=== PATIENT | male | born 1945 | race Caucasian/White ===

== ENCOUNTER 2018-09-19 08:21 | Inpatient (IN) | payer MEDICARE, MEDICAID ==
[~2018-09-19] VITALS: Ht 162.6 cm; Wt 74.0 kg
[2018-09-19] VITALS (9 sets, daily range): BP systolic 130–149; BP diastolic 56–85
[2018-09-19] MEDS ORDERED: GLIP10TA10 PO (10:31)
[2018-09-19] MEDS ORDERED: ATOR20TA PO (10:31)
[2018-09-19] MEDS ORDERED: METF-416 PO (10:31)
[2018-09-19] MEDS ORDERED: AMOX1TAB15 PO (10:31)
[2018-09-19] MEDS ORDERED: OMEP20CA10 PO (10:31)
[2018-09-19] MEDS ORDERED: CLOP75TA33 PO (10:31)
[2018-09-19] MEDS ORDERED: AMLO10TA80 PO (10:31)
[2018-09-19] MEDS ORDERED: CARV3.1242 PO (10:31)
[2018-09-19] MEDS ORDERED: HYDR25TA PO (10:31)
[2018-09-19] MEDS ORDERED: INSU100I24 SQ (10:31)
[2018-09-19] MEDS ORDERED: IOHEXOL-300 100 ML BOTTLE ONE ×2 (10:50→11:16)
[2018-09-19] MEDS ORDERED: LIDOCAINE HCL 1% 20ML VIAL (Pyxis) INJ ONE (10:51)
[2018-09-19] MEDS ORDERED: MIDAZOLAM HCL 2 MG/2 ML VIAL ONE (10:58)
[2018-09-19] MEDS ORDERED: FENTANYL CITRATE/PF 50MCG/ML 2ML VIAL ONE (10:58)
[2018-09-19] MEDS ORDERED: FURO20TA4 PO (11:03)
[2018-09-19] MEDS ORDERED: LISI40TA4 PO (11:03)
[2018-09-19] MEDS ORDERED: CLOPIDOGREL 75MG TABLET ONE (11:53)
[2018-09-19] MEDS ORDERED: ASPIRIN 325MG TABLET ONE (11:53)
[2018-09-19] MEDS ORDERED: ONDANSETRON HCL 4MG/2ML INJ IV PRN (12:00)
[2018-09-19] MEDS ORDERED: ACETAMINOPHEN 325MG TABLET PO PRN (12:00)
[2018-09-19] MEDS ORDERED: ATROPINE SULFATE 1MG/10ML SYR IV PRN (12:00)
[2018-09-19] MEDS ORDERED: HEPARIN SODIUM 1,000 UNIT/1ML VIAL IV ONE (13:21)
[2018-09-20] VITALS (11 sets, daily range): BP systolic 134–151; BP diastolic 54–78
[2018-09-20 06:18] LABS: BASOPHILS % 0.5 % (0.0-2.0); EOSINOPHILS % 0.8 % (0.0-5.0); HEMATOCRIT. 35.7 % (42.0-52.0); HEMOGLOBIN. 12.3 g/dL (14.0-18.0); LYMPHOCYTES % 33.5 % (20.0-50.0); MEAN CORPUSCULAR HEMOGLOBIN 35.5 pg (28.0-32.0); MEAN CORPUSCULAR VOLUME 102.9 fL (80.0-94.0); MEAN PLATELET VOLUME 8.9 fl (7.4-10.4); MONOCYTES % 10.5 % (2.0-8.0); NEUTROPHILS % 54.7 % (40.0-76.0); PLATELET 201 x1000/uL (130-400); RED BLOOD CELL COUNT 3.47 mill/uL (4.7-6.1); RED CELL DISTRIBUTION WIDTH 12.9 % (11.6-14.6)
[2018-09-20 06:32] LABS: CHLORIDE 104 mEq/L (98-107)
[2018-09-20] MEDS: ASPIRIN 325MG TABLET PO SCH (09:00)
[2018-09-20] MEDS: CLOPIDOGREL 75MG TABLET PO SCH (09:00)
[2018-09-20] MEDS: CARVEDILOL 3.125 MG TABLET PO SCH ×2 (10:10→21:30)
[2018-09-20] MEDS ORDERED: MIDAZOLAM HCL 2 MG/2 ML VIAL ONE (13:10)
[2018-09-20] MEDS ORDERED: FENTANYL CITRATE/PF 50MCG/ML 2ML VIAL ONE (13:10)
[2018-09-20] MEDS ORDERED: LIDOCAINE HCL 1% 20ML VIAL (Pyxis) INJ ONE (13:20)
[2018-09-20] MEDS ORDERED: BETAMETHASONE ACET/BETAMET 30 MG/5 ML VIAL IM ONE (13:21)
[2018-09-20] MEDS ORDERED: BACITRACIN 50,000 UNITS/VIAL ONE (13:21)
[2018-09-20] MEDS ORDERED: BUPIVACAINE HCL/PF 0.25% (2.5MG/ML) 10ML ONE (13:21)
[2018-09-20] MEDS ORDERED: BACITRACIN 15GM TUBE TOP ONE (13:22)
[2018-09-20] MEDS ORDERED: ALBUTEROL 90MCG/PUFF 17GM INHALER INH ONE (13:39)
[2018-09-20] MEDS ORDERED: GENTAMICIN SULF 40MG/ML 2ML VIAL ONE (14:12)
[2018-09-20] MEDS ORDERED: ONDANSETRON HCL 4MG/2ML INJ IV PRN (15:00)
[2018-09-20] MEDS ORDERED: HYDROMORPHONE HCL/PF 2MG/ML CPJ IV PRN (15:00)
[2018-09-20] MEDS: SODIUM CHLORIDE 0.45% 1,000 ML IV SCH (16:32)
[2018-09-20] MEDS: ACETAMINOPHEN 500MG TABLET PO SCH ×2 (17:17→18:34)
[2018-09-20] MEDS: ATORVASTATIN CALCIUM 20MG TABLET PO SCH (21:28)
[2018-09-20] MEDS: KETOROLAC 15MG/ML VIAL IV SCH (21:31)
[2018-09-21] VITALS (16 sets, daily range): BP systolic 128–151; BP diastolic 53–68
[2018-09-21] MEDS: SODIUM CHLORIDE 0.45% 1,000 ML IV SCH ×2 (00:29→14:31)
[2018-09-21] MEDS: ACETAMINOPHEN 500MG TABLET PO SCH (02:01)
[2018-09-21] MEDS: KETOROLAC 15MG/ML VIAL IV SCH ×3 (05:41→21:36)
[2018-09-21 06:26] LABS: BASOPHILS % 0.3 % (0.0-2.0); EOSINOPHILS % 1.1 % (0.0-5.0); HEMATOCRIT. 33.8 % (42.0-52.0); HEMOGLOBIN. 11.7 g/dL (14.0-18.0); LYMPHOCYTES % 29.7 % (20.0-50.0); MEAN CORPUSCULAR HEMOGLOBIN 35.2 pg (28.0-32.0); MEAN CORPUSCULAR VOLUME 101.9 fL (80.0-94.0); MEAN PLATELET VOLUME 8.9 fl (7.4-10.4); MONOCYTES % 10.7 % (2.0-8.0); NEUTROPHILS % 58.2 % (40.0-76.0); PLATELET 189 x1000/uL (130-400); RED BLOOD CELL COUNT 3.32 mill/uL (4.7-6.1); RED CELL DISTRIBUTION WIDTH 12.9 % (11.6-14.6)
[2018-09-21 06:49] LABS: CHLORIDE 106 mEq/L (98-107)
[2018-09-21] MEDS: CLOPIDOGREL 75MG TABLET PO SCH (08:14)
[2018-09-21] MEDS: ASPIRIN 325MG TABLET PO SCH (08:14)
[2018-09-21] MEDS: CARVEDILOL 3.125 MG TABLET PO SCH ×2 (08:20→21:31)
[2018-09-21] MEDS: ATORVASTATIN CALCIUM 20MG TABLET PO SCH (21:31)
[2018-09-22] VITALS (32 sets, daily range): BP systolic 134–162; BP diastolic 36–87
[2018-09-22] MEDS: SODIUM CHLORIDE 0.45% 1,000 ML IV SCH ×2 (05:26→19:27)
[2018-09-22] MEDS: KETOROLAC 15MG/ML VIAL IV SCH ×3 (05:32→21:41)
[2018-09-22] MEDS: ASPIRIN 325MG TABLET PO SCH (09:07)
[2018-09-22] MEDS: CARVEDILOL 3.125 MG TABLET PO SCH ×2 (09:13→21:40)
[2018-09-22] MEDS: CLOPIDOGREL 75MG TABLET PO SCH (09:13)
[2018-09-22] MEDS: ATORVASTATIN CALCIUM 20MG TABLET PO SCH (21:40)
[2018-09-23] VITALS (15 sets, daily range): BP systolic 118–149; BP diastolic 42–66
[2018-09-23] MEDS: KETOROLAC 15MG/ML VIAL IV SCH ×2 (06:18→14:00)
[2018-09-23 06:43] LABS: BASOPHILS % 0.3 % (0.0-2.0); EOSINOPHILS % 1.2 % (0.0-5.0); HEMATOCRIT. 32.4 % (42.0-52.0); HEMOGLOBIN. 11.5 g/dL (14.0-18.0); LYMPHOCYTES % 28.1 % (20.0-50.0); MEAN CORPUSCULAR HEMOGLOBIN 36.3 pg (28.0-32.0); MEAN CORPUSCULAR VOLUME 102.5 fL (80.0-94.0); MEAN PLATELET VOLUME 9.2 fl (7.4-10.4); MONOCYTES % 9.6 % (2.0-8.0); NEUTROPHILS % 60.8 % (40.0-76.0); PLATELET 186 x1000/uL (130-400); RED BLOOD CELL COUNT 3.16 mill/uL (4.7-6.1); RED CELL DISTRIBUTION WIDTH 12.8 % (11.6-14.6)
[2018-09-23 08:26] LABS: CHLORIDE 108 mEq/L (98-107)
[2018-09-23] MEDS: ASPIRIN 325MG TABLET PO SCH (08:35)
[2018-09-23] MEDS: CARVEDILOL 3.125 MG TABLET PO SCH ×2 (08:35→20:50)
[2018-09-23] MEDS: CLOPIDOGREL 75MG TABLET PO SCH (08:35)
[2018-09-23] MEDS: SODIUM CHLORIDE 0.45% 1,000 ML IV SCH (09:45)
[2018-09-23] MEDS: ATORVASTATIN CALCIUM 20MG TABLET PO SCH (20:50)
[2018-09-24 01:23] VITALS: BP 144/59
[2018-09-24 03:23] VITALS: BP 142/56
[2018-09-24 05:23] VITALS: BP 146/60
[2018-09-24 06:00] VITALS: BP_SYST 143; BP_SYST 146; BP_DIAS 60; BP_DIAS 68
[2018-09-24 08:00] VITALS: BP 150/73
[2018-09-24] MEDS: CLOPIDOGREL 75MG TABLET PO SCH (08:02)
[2018-09-24] MEDS: ASPIRIN 325MG TABLET PO SCH (08:02)
[2018-09-24] MEDS: CARVEDILOL 3.125 MG TABLET PO SCH (08:04)
== END 2018-09-24 09:25 | disposition home or self-care (01) | DRG 240 ==
LOC: CCL 08:21 → 3WST 08:22
PROVIDERS: ADMIT Specialist; ATTEND Specialist
PROC: 047M3ZZ Dilation of Right Popliteal Artery, Percutaneous Approach (ICD-10-PCS; principal; 2018-09-19)
PROC: B41F1ZZ Fluoroscopy of Right Lower Extremity Arteries using Low Osmolar Contrast (ICD-10-PCS; 2018-09-19)
PROC: 0Y6M0Z9 Detachment at Right Foot, Partial 1st Ray, Open Approach (ICD-10-PCS; 2018-09-20)
PROC: 0Y6M0ZB Detachment at Right Foot, Partial 2nd Ray, Open Approach (ICD-10-PCS; 2018-09-20)
PROC: 0Y6M0ZC Detachment at Right Foot, Partial 3rd Ray, Open Approach (ICD-10-PCS; 2018-09-20)
PROC: 0Y6M0ZD Detachment at Right Foot, Partial 4th Ray, Open Approach (ICD-10-PCS; 2018-09-20)
PROC: 0Y6M0ZF Detachment at Right Foot, Partial 5th Ray, Open Approach (ICD-10-PCS; 2018-09-20)
DX: E11.51 Type 2 diabetes mellitus with diabetic peripheral angiopathy without gangrene (principal); M86.9 Osteomyelitis, unspecified; E11.69 Type 2 diabetes mellitus with other specified complication; E11.621 Type 2 diabetes mellitus with foot ulcer; D63.8 Anemia in other chronic diseases classified elsewhere; E78.5 Hyperlipidemia, unspecified; I11.9 Hypertensive heart disease without heart failure; I44.7 Left bundle-branch block, unspecified; L97.519 Non-pressure chronic ulcer of other part of right foot with unspecified severity
CPT/HCPCS: 36247; 36415; 75710; 80048; 82962; 85347; 87070; 87075; 88305; 88311; 97162; C1725; C1760; C1769; C1893; C1894; J0702; J1580; J1644; J1885; J2250; J3010; J3490; Q9967

== ENCOUNTER → 2020-03-23 | Outpatient (CLI) | payer MEDICARE, MEDICAID ==
[~2020-03-23] MED LIST: AMLO10TA80 PO; AMOX1TAB15 PO; ASPI-1497 PO; ATOR20TA PO; CARV3.1242 PO; CARV6.2548 PO; CLOP75TA33 PO; FURO20TA4 PO; FURO40TA5 PO; GLIP10TA10 PO; HYDR25TA PO; INSU100I24 SQ; LISI40TA4 PO; METF-416 PO; OMEP20CA14 PO
== END | disposition home or self-care (01) ==
LOC: LAB 12:30
PROVIDERS: ATTEND Podiatrist Foot & Ankle Surgery
DX: Z01.812 Encounter for preprocedural laboratory examination (principal); Z20.828 Contact with and (suspected) exposure to other viral communicable diseases
CPT/HCPCS: C9803; U0003

== ENCOUNTER 2020-03-26 07:01 | Day surgery (SDC) | payer MEDICARE, MEDICAID ==
[~2020-03-26] VITALS: Ht 157.5 cm; Wt 74.8 kg
[~2020-03-26 07:01] MED LIST changes: -CARV3.1242 PO; -FURO20TA4 PO
[2020-03-26] MEDS ORDERED: LIDOCAINE HCL/PF 1% 10 MG/ML 5ML VIAL ONE (07:53)
[2020-03-26] MEDS ORDERED: BUPIVACAINE HCL/PF 0.5% (5MG/ML) 10ML ONE (07:53)
[2020-03-26] MEDS ORDERED: SODIUM CHLORIDE 0.9% INJ 10ML FLUSH ONE (07:53)
[2020-03-26] MEDS ORDERED: BACITRACIN 50,000 UNITS/VIAL ONE (07:53)
[2020-03-26] MEDS ORDERED: MIDAZOLAM HCL 2 MG/2 ML VIAL ONE (08:20)
[2020-03-26] MEDS ORDERED: VANCOMYCIN HCL 1 GM/VIAL ONE (08:24)
[2020-03-26] MEDS ORDERED: SUCCINYLCHOLINE CHLORIDE 200MG/10ML IV ONE (08:24)
[2020-03-26] MEDS ORDERED: SODIUM CHLORIDE 0.9% 1,000 ML IV ONE (08:43)
[2020-03-26] MEDS ORDERED: ONDANSETRON HCL 4MG/2ML INJ IV PRN (08:45)
[2020-03-26] MEDS ORDERED: HYDROMORPHONE HCL/PF 2MG/ML CPJ IV PRN (08:45)
== END 2020-03-26 10:50 | disposition home or self-care (01) ==
LOC: OR 07:01
PROVIDERS: ATTEND Podiatrist Foot & Ankle Surgery
DX: S91.105A Unspecified open wound of left lesser toe(s) without damage to nail, initial encounter (principal); M86.9 Osteomyelitis, unspecified; Z79.82 Long term (current) use of aspirin; Z79.84 Long term (current) use of oral hypoglycemic drugs; Z79.4 Long term (current) use of insulin; Z98.890 Other specified postprocedural states; X58.XXXA Exposure to other specified factors, initial encounter; Y93.89 Activity, other specified; Y92.89 Other specified places as the place of occurrence of the external cause; Y99.8 Other external cause status
CPT/HCPCS: 11044; 82962; 87070; 87075; 87205; 88305; 88311; J0330; J2250; J3370; J3490; 88302